=== PATIENT | male | born 1975 | race Caucasian/White ===

== ENCOUNTER 2025-04-15 13:07 | Inpatient (IN) | payer OTHER ==
[2025-04-15 13:33] VITALS: BMI 19.8
[2025-04-15] MEDS ORDERED: BENZONATATE 200 MG CAPSULE PO PRN (14:39)
[2025-04-15] MEDS ORDERED: NALOXONE (NARCAN) HCL 4 MG/0.1 ML SPRAY NS PRN (14:39)
[2025-04-15] MEDS ORDERED: LOPERAMIDE HCL 2 MG CAPSULE PO PRN (14:39)
[2025-04-15] MEDS ORDERED: NICOTINE POLACRILEX 2 MG LOZENGE BC PRN (14:39)
[2025-04-15] MEDS ORDERED: NICOTINE POLACRILEX 2 MG GUM BUC PRN (14:39)
[2025-04-15] MEDS ORDERED: ACETAMINOPHEN 325 MG TABLET (FP) PO PRN (14:39)
[2025-04-15] MEDS ORDERED: TUBERCULIN PPD 5 TU/0.1ML VIAL ID ONE (20:56)
[2025-04-15] MEDS: THIAMINE 100 MG TABLET PO SCH (21:39)
[2025-04-15] MEDS: TUBERCULIN PPD 5 TU/0.1ML SYRINGE (IN PATIENT USE ONLY) ID ONE (21:40)
[2025-04-15] MEDS: MELATONIN 5 MG TABLETS PO SCH (21:43)
[2025-04-16] MEDS ORDERED: methaDONE HCL 10 MG TABLET PO ONE (06:00)
[2025-04-16] MEDS: guaiFENesin 600 MG TABLET.ER (FP) PO PRN (06:12)
[2025-04-16 09:00] LABS: HEMOGLOBIN 11.8 g/dL (13.7-17.5); MCHC 31.1 g/dl (32.3-36.5); MEAN CELL VOLUME 89.2 fl (79.0-92.2); PLATELET COUNT 263 x10^3/uL (163-337); RDW 15.4 % (12.1-15.9)
[2025-04-16 09:02] LABS: URINE APPEARANCE CLEAR; URINE BILIRUBIN NEGATIVE (NEGATIVE); URINE COLOR YELLOW; URINE GLUCOSE (UA) NEGATIVE (NEGATIVE); URINE KETONE NEGATIVE (NEGATIVE); URINE LEUK ESTERASE NEGATIVE (NEGATIVE); URINE NITRITE NEGATIVE (NEGATIVE); URINE PROTEIN NEGATIVE (NEGATIVE)
[2025-04-16 09:07] LABS: CALCIUM 9.4 mg/dL (8.5-10.1)
[2025-04-16 09:08] LABS: ALBUMIN 2.9 g/dl (3.4-5.0); BLOOD UREA NITROGEN 10.2 mg/dL (7-18)
[2025-04-16 09:12] LABS: BILIRUBIN,TOTAL 0.7 mg/dL (0.2-1); CREATININE 0.6 mg/dL (0.55-1.3)
[2025-04-16 10:08] LABS: TOT PROT 6.6 g/dl (6.4-8.2)
[2025-04-16] MEDS: PRENATAL VITAMINS W/ FOLIC ACID TABLET (FP) PO SCH (10:11)
[2025-04-16 14:22] LABS: SYPHILIS W/ RPR CONF REACTIVE (NONREACTIVE)
[2025-04-16 16:29] LABS: HCV DIAGNOSTIC IN-HOUSE W/RFLX REACTIVE (NONREACTIVE)
[2025-04-17] MEDS: methaDONE HCL 10 MG TABLET PO ONE (08:03)
[2025-04-17] MEDS ORDERED: methaDONE HCL 10 MG TABLET PO SCH (10:00)
[2025-04-18] MEDS: MAGNESIUM HYDROX 2400MG/30ML ORAL SUSPENSION 30 ML CUP PO PRN (12:21)
[2025-04-19] MEDS: P-EPHED 60MG/TRIPROLIDI 2.5MG TABLET PO PRN (07:49)
[2025-04-19] MEDS ORDERED: guaiFENesin 600 MG TABLET.ER (FP) PO PRN (13:24)
[2025-04-19] MEDS ORDERED: BENZONATATE 200 MG CAPSULE PO PRN (13:24)
[2025-04-20] MEDS: POLYETHYLENE GLYCOL (HEALTHYLAX) 3350 17 GM PACKET PO PRN (10:15)
[2025-04-20] MEDS: IBUPROFEN 600 MG TABLET (FP) PO PRN (16:41)
[2025-04-20] MEDS: DOCUSATE SODIUM 100 MG CAPSULE (FP) PO PRN (20:09)
[2025-04-22] MEDS: guaiFENesin 600 MG TABLET.ER (FP) PO PRN (19:56)
[2025-04-24] MEDS: BENZOCAINE/MENTHOL (CHLORASEPTIC ) LOZENGE MM PRN (21:29)
[2025-04-25] MEDS: FLUTICASONE PROP 0.05% 16 GM NASAL SPRAY NS SCH (22:39)
[2025-04-29] MEDS: IBUPROFEN 400 MG TABLET (FP) PO PRN (11:09)
[2025-04-29] MEDS: MAG HYDROX/AL HYDROX/SIMETH 30 ML UNIT-DOSE CUP PO PRN (18:13)
[2025-05-02] MEDS ORDERED: methaDONE HCL 40 MG DISPERSABLE TABLET PO SCH (06:00)
[2025-05-03] MEDS ORDERED: FLUTICASONE PROP 0.05% 16 GM NASAL SPRAY NS PRN (15:58)
[2025-05-04] MEDS: BISACODYL 5 MG TABLET.DR (FP) PO PRN (06:05)
[2025-05-04] MEDS: CLINDAMYCIN PHOSPHATE 1% TOPICAL GEL 30 GM TUBE TP SCH (13:53)
[2025-05-04] MEDS: AMOX TR/POT CLAV 500MG/125MG TABLETS (FP) PO SCH (17:38)
[2025-05-04] MEDS: BACLOFEN 10 MG TABLET (FP) PO SCH (21:32)
[2025-05-05] MEDS: SENNOSIDES 8.6MG TABLET (FP) PO PRN (12:09)
[2025-05-08] MEDS ORDERED: methaDONE HCL 40 MG DISPERSABLE TABLET PO SCH (12:40)
[2025-05-10 06:35] VITALS: BP 113/70; PULSE 75; RESP 16; TEMP 98
== END 2025-05-10 11:00 | disposition home or self-care (01) | DRG 772 ==
LOC: YASAS 13:07 → Y5N 15:14
PROVIDERS: ADMIT Neuromusculoskeletal Medicine & OMM; ATTEND Family Medicine Addiction Medicine
PROC: HZ42ZZZ Group Counseling for Substance Abuse Treatment, Cognitive-Behavioral (ICD-10-PCS; principal; 2025-04-15)
DX: F11.20 Opioid dependence, uncomplicated (principal); F14.20 Cocaine dependence, uncomplicated; F13.10 Sedative, hypnotic or anxiolytic abuse, uncomplicated; F17.210 Nicotine dependence, cigarettes, uncomplicated; F20.0 Paranoid schizophrenia; J41.0 Simple chronic bronchitis; R26.89 Other abnormalities of gait and mobility; B18.2 Chronic viral hepatitis C; Z20.2 Contact with and (suspected) exposure to infections with a predominantly sexual mode of transmission; Z59.01 Sheltered homelessness
CPT/HCPCS: 0241U-QW; 36415; 80053; 80305; 80307; 81003; 82962; 85027; 86593; 86780; 86803; 87522; 87811; 93005; 93010; J0475